=== PATIENT | female | born 1980 | race Caucasian/White ===

== ENCOUNTER 2020-12-14 18:30 | Emergency (ER) | payer MEDICAID, OTHER ==
[~2020-12-14] VITALS: Ht 157.5 cm; Wt 58.0 kg
[2020-12-14] MEDS ORDERED: IBUP-2437 PO (18:36)
[2020-12-14] MEDS ORDERED: KETOROLAC 30MG/ML VIAL IV STA (19:10)
[2020-12-14] MEDS ORDERED: ONDANSETRON HCL 4MG/2ML INJ IV STA (19:10)
[2020-12-14] MEDS ORDERED: SODIUM CHLORIDE 0.9% 1,000 ML IV ONE (19:15)
[2020-12-14 19:52] LABS: CLARITY URINE CLEAR (CLEAR); COLOR URINE YELLOW (YELLOW); KETONES URINE 3+ (NEGATIVE); LEUKOCYTE ESTERASE URINE NEGATIVE (NEGATIVE); NITRITE URINE NEGATIVE (NEGATIVE); OCCULT BLOOD URINE 2+ (NEGATIVE); PROTEIN URINE 1+ (NEGATIVE); SPECIFIC GRAVITY URINE 1.028 (1.005-1.030)
[2020-12-14 20:18] LABS: HEMATOCRIT. 38.8 % (36.0-48.0); HEMOGLOBIN. 13.2 g/dL (12.0-16.0); MEAN CORPUSCULAR HEMOGLOBIN 30.5 pg (28.0-32.0); MEAN CORPUSCULAR VOLUME 89.6 fL (81.0-99.0); MEAN PLATELET VOLUME 8.8 fl (7.4-10.4); PLATELET 343 x1000/uL (130-400); RED BLOOD CELL COUNT 4.33 mill/uL (4.2-5.4); RED CELL DISTRIBUTION WIDTH 13.4 % (11.6-14.6)
[2020-12-14 20:23] LABS: CHLORIDE 108 mEq/L (98-107)
[2020-12-14 20:32] LABS: HCG SCREEN NEGATIVE
[2020-12-14 20:35] LABS: PROTHROMBIN TIME 11.1 sec (9.6-11.0)
[2020-12-14 21:30] LABS: PLATELET ESTIMATE NORMAL
[2020-12-14] MEDS ORDERED: ACET-2708 MT (22:16)
[2020-12-14] MEDS ORDERED: ONDA4TAB5 MT (22:16)
[2020-12-14 23:02] VITALS: BP 121/71
== END 2020-12-14 23:04 | disposition home or self-care (01) ==
LOC: ER 18:30
DX: K80.80 Other cholelithiasis without obstruction (principal)
CPT/HCPCS: 36415; 76705; 80053; 81003; 81025; 83690; 84703; 85025; 85610; 96361; 96374; 96375; 99284; J1885; J2405; J7030

== ENCOUNTER 2021-08-11 12:40 | Emergency (ER) | payer OTHER, MEDICAID ==
[~2021-08-11] VITALS: Ht 157.5 cm; Wt 59.0 kg
[~2021-08-11 12:40] MED LIST: ACET-2708 MT; IBUP-2437 PO; ONDA4TAB5 MT
[2021-08-11 15:04] VITALS: BP 125/73
== END 2021-08-11 18:14 | disposition left against medical advice (07) ==
LOC: ER 12:40
DX: R42 Dizziness and giddiness (principal); R51.9 Headache, unspecified
CPT/HCPCS: 71045